=== PATIENT | male | born 1960 | race African-American/Black ===

== ENCOUNTER 2023-05-31 08:04 | Outpatient (CLI) | payer OTHER | END 2023-05-31 08:05 | disposition home or self-care (01) | LOC: SCSMRI 08:04 | PROVIDERS: ATTEND Neurological Surgery | DX: M54.2 Cervicalgia (principal); M54.16 Radiculopathy, lumbar region; M48.02 Spinal stenosis, cervical region; G95.89 Other specified diseases of spinal cord | CPT/HCPCS: 72141 ==